=== PATIENT | male | born 1970 | race Two or more races ===

== ENCOUNTER 2016-10-24 14:59 | Inpatient (IN) | payer OTHER ==
[2016-10-24 15:43] VITALS: BMI 26.6
--- NOTE | 2016-10-24 16:48 | HP ---
COWS - Scale Resting Pulse: 2= [place] 101-120 Sweatin=Flushed/Facial Moisture Restless Observation: 1= Difficult to Sit Still Pupil Size: 2= Moderately Dilated Bone or Joint Aches: 2= Severe Diffuse Aches Runny Nose/ Eye Tearin= Runny Nose/Eyes GI Upset > 30mins: 2= Nausea/Diarrhea Tremor Observation: 2= Slight Tremor Visible Yawning Observation: 1= 1-2x During Session Anxiety or Irritability: 2=Irritable/Anxious Goose Flesh Skin: 0=Smooth Skin COWS Score: 18 CIWA Score - CIWA Score Nausea/Vomitin Muscle Tremors: 4-Moderate,w/Arms Extend Anxiety: 4-Mod. Anxious/Guarded Agitation: 4-Moderately Restless Paroxysmal Sweats: 3 Orientation: 0-Oriented Tacttile Disturbances: 2-Mild Itch/Numbness/Burn Auditory Disturbances: 0-None Visual Disturbances: 0-None Headache: 0-None Present CIWA-Ar Total Score: 20 Admission ROS BHS - HPI Chief Complaint: WITHDRAWAL SX. Allergies/Adverse Reactions: Allergies Allergy/AdvReac Type Severity Reaction Status Date / Time No Known Allergies Allergy Unverified 02/12/12 08:55 History of Present Illness: 46 Y/O MAN WITH A LONG HX. OF DRUGS & ALCOHOL DEPENDENCE IS ADMITTED FOR DETOX. PT. HAS BEEN IN PREVIOUS DETOX,REPORTS 2 YRS. SOBER & DRUG FREE. PT. WAS IN THE ED LAST NIGHT. Exam Limitations: No Limitations - Ebola screening Have you traveled outside of the country in the last 21 days: No (N) Have you had contact with anyone from an Ebola affected area: No Have you been sick,other than usual withdrawal symptoms: No Do you have a fever: No - Review of Systems Constitutional: Diaphoresis EENT: reports: Nose Congestion Respiratory: reports: No Symptoms reported Cardiac: reports: No Symptoms Reported GI: reports: Nausea, Abdominal cramping : reports: No Symptoms Reported Musculoskeletal: reports: Back Pain, Joint Pain Integumentary: reports: Sweating Neuro: reports: Tingling, Tremors Endocrine: reports: No Symptoms Reported Hematology: reports: No Symptoms Reported Psychiatric: reports: No Sypmtoms Reported Other Systems: Reviewed and Negative Patient History - Patient Medical History Hx Anemia: No Hx Asthma: No Hx Chronic Obstructive Pulmonary Disease (COPD): No Hx Cancer: No Hx Cardiac Disorders: No Hx Congestive Heart Failure: No Hx Hypertension: No Hx Hypercholesterolemia: No Hx Pacemaker: No HX Cerebrovascular Accident: No Hx Seizures: No Hx Dementia: No Hx Diabetes: No Hx Gastrointestinal Disorders: No Hx Liver Disease: No Hx Genitourinary Disorders: No Hx Sexually Transmitted Disorders: No Hx Renal Disease (ESRD): No Hx Thyroid Disease: No Hx Human Immunodeficiency Virus (HIV): No Hx Hepatitis C: No Hx Depression: Yes Hx Suicide Attempt: No Hx Bipolar Disorder: Yes Hx Schizophrenia: No - Patient Surgical History Past Surgical History: Yes Hx Neurologic Surgery: Yes (CERVICAL LAMINECTOMY,USES WALKER SINCE THEN) Hx Cataract Extraction: No Hx Cardiac Surgery: No Hx Lung Surgery: No Hx Breast Surgery: No Hx Breast Biopsy: No Hx Abdominal Surgery: No Hx Appendectomy: No Hx Cholecystectomy: No Hx Genitourinary Surgery: No Hx Section: No Hx Orthopedic Surgery: No Anesthesia Reaction: No - PPD History Previous Implant?: Yes Documented Results: Negative w/proof Implanted On Prior [facility] Admission?: Yes Date: 02/13/12 Results: 0 mm PPD to be Administered?: Yes - Smoking Cessation Smoking history: Current every day smoker Have you smoked in the past 12 months: Yes Aproximately how many cigarettes per day: 10 Hx Chewing Tobacco Use: No Initiated information on smoking cessation: Yes 'Breaking Loose' booklet given: 10/24/16 - Substance & Tx. History Hx Alcohol Use: Yes Hx Substance Use: Yes Substance Use Type: Alcohol, Cocaine, Heroin Hx Substance Use Treatment: Yes (DETOX) - Substances Abused Alcohol Route: Oral Frequency: Daily Amount used: RUM 3 PINTS Age of first use: 14 Date of Last Use: 10/24/16 Heroin Route: Inhalation Frequency: Daily Amount used: 8 BAGS Age of first use: 28 Date of Last Use: 10/24/16 Crack Route: Smoking Amount used: $200-$400 Age of first use: 20 Date of Last Use: 10/23/16 Alprazolam (Xanax) Route: Oral Frequency: Daily Amount used: 2MG Age of first use: 31 Date of Last Use: 10/18/16 Family Disease History - Family Disease History Family History: Denies Admission Physical Exam BHS - Vital Signs Vital Signs: Vital Signs - 24 hr 10/24/16 15:38 Temperature 96.7 F L Pulse Rate 110 H Respiratory 20 Rate Blood Pressure 120/69 - Physical General Appearance: Yes: Alcohol on Breath, Tremorous, Sweating, Anxious HEENTM: Yes: Nasal Congestion, Rhinorrhea Respiratory: Yes: Chest Non-Tender, Lungs Clear, Normal Breath Sounds Neck: Yes: Supple Breast: Yes: Breast Exam Deferred Cardiology: Yes: Regular Rhythm, Regular Rate, S1, S2 Abdominal: Yes: Normal Bowel Sounds, Non Tender, Soft Genitourinary: Yes: Within Normal Limits Back: Yes: Within Normal Limits Musculoskeletal: Yes: Within Normal Limits Extremities: Yes: Tremors Neurological: Yes: Fully Oriented, Alert Integumentary: Yes: Diaphoresis Lymphatic: Yes: Within Normal Limits - Diagnostic (1) Opioid dependence with withdrawal Current Visit: Yes Status: Acute (2) Alcohol dependence with uncomplicated withdrawal Current Visit: Yes Status: Acute (3) Sedative, hypnotic or anxiolytic dependence with withdrawal, uncomplicated Current Visit: Yes Status: Acute (4) Cocaine dependence, uncomplicated Current Visit: Yes Status: Acute Cleared for Admission [facility] - Detox or Rehab [facility] Level of Care: Medically Managed Detox Regimen/Protocol: Methadone/Librium [facility] Breath Alcohol Content Breath Alcohol Content: 0.021 Urine Drug Screen - Results Drug Screen Negative: No Urine Drug Screen Results: TIFFANY-Cocaine, OPI-Opiates, MDMA-Ecstasy, BZO- Benzodiazepines, TCA-Tricyclic Antidepress, OXY-Oxycodone
[2016-10-24] MEDS ORDERED: chlordiazePOXIDE HCL 25 MG CAPSULE PO ONE (16:59)
[2016-10-24] MEDS ORDERED: P-EPHED 60MG/TRIPROLIDI 2.5MG TABLET PO PRN (16:59)
[2016-10-24] MEDS ORDERED: MAGNESIUM CITRATE 300 ML BOTTLE PO PRN (16:59)
[2016-10-24] MEDS ORDERED: guaiFENesin/D-METHORPHAN HB 10 ML UNIT-DOSE CUPS PO PRN (16:59)
[2016-10-24] MEDS ORDERED: chlordiazePOXIDE HCL 25 MG CAPSULE PO PRN (16:59)
[2016-10-24] MEDS ORDERED: MAGNESIUM HYDROX 2400MG/30ML ORAL SUSPENSION 30 ML CUP PO PRN (16:59)
[2016-10-24] MEDS ORDERED: MENTHOL/PHENOL 1 EACH UD MM PRN (16:59)
[2016-10-24] MEDS ORDERED: NICOTINE POLACRILEX 2 MG GUM BC PRN (16:59)
[2016-10-24] MEDS ORDERED: LOPERAMIDE HCL 2 MG CAPSULE PO PRN (16:59)
[2016-10-24] MEDS ORDERED: METHADONE HCL 10 MG TABLET (FOR DETOX USE ONLY) PO ONE ×2 (16:59→23:00)
[2016-10-24] MEDS ORDERED: MAG HYDROX/AL HYDROX/SIMETH 30 ML UNIT-DOSE CUP PO PRN (16:59)
[2016-10-24] MEDS ORDERED: METHADONE HCL 10 MG TABLET (FOR DETOX USE ONLY) ONE (18:28)
[2016-10-24] MEDS: chlordiazePOXIDE HCL 25 MG CAPSULE PO SCH ×2 (18:39→22:28)
[2016-10-24] MEDS: NICOTINE 21 MG/24 HOURS TOPICAL PATCH TD SCH (18:39)
[2016-10-24] MEDS: IBUPROFEN 400 MG TABLET (FP) PO PRN (18:45)
[2016-10-24] MEDS: THIAMINE HCL 100 MG TABLET (FP) PO SCH (22:28)
[2016-10-24] MEDS: diphenhydrAMINE HCL 50 MG CAPSULE PO PRN (22:28)
[2016-10-25] MEDS: diphenhydrAMINE HCL 50 MG CAPSULE PO PRN ×2 (00:50→22:33)
[2016-10-25] MEDS: IBUPROFEN 400 MG TABLET (FP) PO PRN ×2 (04:25→17:51)
[2016-10-25] MEDS: chlordiazePOXIDE HCL 25 MG CAPSULE PO SCH ×4 (05:18→22:33)
[2016-10-25 09:45] LABS: MCH 31.1 pg (25.7-33.7); MCHC 33.4 g/dl (32.0-35.9); MEAN CELL VOLUME 93.2 fl (80-96); MEAN PLT VOLUME 10.5 fl (7.5-11.1); PLATELET COUNT 211 K/MM3 (134-434); RDW 14.8 % (11.9-15.9)
[2016-10-25] MEDS ORDERED: METHADONE HCL 10 MG TABLET (FOR DETOX USE ONLY) PO SCH (10:00)
[2016-10-25 10:20] LABS: ALBUMIN 3.5 g/dl (3.4-5.0); ALK PHOS 85 U/L (45-117); ANION GAP 7 (8-16); BILIRUBIN,TOTAL 0.5 mg/dL (0.2-1.0); CALCIUM 8.5 mg/dL (8.5-10.1); CO2 28 mmol/L (21-32); CREATININE 0.9 mg/dL (0.7-1.3); GLUCOSE,RANDOM 79 mg/dL (74-106); SGOT/AST 27 U/L (15-37); SGPT/ALT 26 U/L (12-78); TOT PROT 6.1 g/dl (6.4-8.2)
[2016-10-25] MEDS: PRENATAL VITAMINS W/ FOLIC ACID TABLET (FP) PO SCH (10:23)
[2016-10-25] MEDS: NICOTINE 21 MG/24 HOURS TOPICAL PATCH TD SCH (10:25)
--- NOTE | 2016-10-25 14:46 | PN ---
[facility] CIWA - CIWA Score Nausea/Vomitin-Mild Nausea/No Vomiting Muscle Tremors: 3 Anxiety: 1-Mildly Anxious Agitation: 2 Paroxysmal Sweats: 3 Orientation: 0-Oriented Tacttile Disturbances: 2-Mild Itch/Numbness/Burn Auditory Disturbances: 1-Very Mild Visual Disturbances: 0-None Headache: 0-None Present CIWA-Ar Total Score: 13 S COWS - Scale Resting Pulse: 0= DC 80 or Below Sweatin= Chills/Flushing Restless Observation: 1= Difficult to Sit Still Pupil Size: 0= Normal to Room Light Bone or Joint Aches: 2= Severe Diffuse Aches Runny Nose/ Eye Tearin= None GI Upset > 30mins: 0= None Tremor Observation of Outstretched Hands: 2= Slight Tremor Visible Yawning Observation: 1= 1-2x During Session Anxiety or Irritability: 2=Irritable/Anxious Goose Flesh Skin: 3=Piloerection COWS Score: 12 S Progress Note (SOAP) Subjective: Tremors, Interrupted sleep, Body aches. Objective: FEVER NOT PRESENT. NO SIGNS OF INFECTION NOTED. 10/25/16 14:43 Vital Signs Temperature 97.0 F L 10/25/16 13:55 Pulse Rate 68 10/25/16 13:55 Respiratory Rate 18 10/25/16 13:55 Blood Pressure 129/72 10/25/16 13:55 O2 Sat by Pulse Oximetry (%) Laboratory Last Values WBC 12.0 K/mm3 (4.0-10.0) H D 10/25/16 07:30 RBC 4.10 M/mm3 (4.00-5.60) 10/25/16 07:30 Hgb 12.8 GM/dL (11.7-16.9) 10/25/16 07:30 Hct 38.2 % (35.4-49) 10/25/16 07:30 MCV 93.2 fl (80-96) 10/25/16 07:30 MCHC 33.4 g/dl (32.0-35.9) 10/25/16 07:30 RDW 14.8 % (11.9-15.9) 10/25/16 07:30 Plt Count 211 K/MM3 (134-434) 10/25/16 07:30 MPV 10.5 fl (7.5-11.1) 10/25/16 07:30 Sodium 141 mmol/L (136-145) 10/25/16 07:20 Potassium 3.9 mmol/L (3.5-5.1) 10/25/16 07:20 Chloride 106 mmol/L (98-107) 10/25/16 07:20 Carbon Dioxide 28 mmol/L (21-32) 10/25/16 07:20 Anion Gap 7 (8-16) L 10/25/16 07:20 BUN 16 mg/dL (7-18) D 10/25/16 07:20 Creatinine 0.9 mg/dL (0.7-1.3) 10/25/16 07:20 Creat Clearance w eGFR > 60 (>60) 10/25/16 07:20 Random Glucose 79 mg/dL (74-106) 10/25/16 07:20 Calcium 8.5 mg/dL (8.5-10.1) 10/25/16 07:20 Total Bilirubin 0.5 mg/dL (0.2-1.0) D 10/25/16 07:20 AST 27 U/L (15-37) D 10/25/16 07:20 ALT 26 U/L (12-78) 10/25/16 07:20 Alkaline Phosphatase 85 U/L (45-117) D 10/25/16 07:20 Total Protein 6.1 g/dl (6.4-8.2) L 10/25/16 07:20 Albumin 3.5 g/dl (3.4-5.0) 10/25/16 07:20 LABS NOTED. 10/25/16 14:44 Assessment: 10/25/16 14:44 WITHDRAWAL SYMPTOMS. Plan: CONTINUE DETOX. ADVISED PT. TO FOLLOW-UP WITH PMD / REHAB MEDICAL PROVIDER AFTER DISCHARGE FOR GENERAL MEDICAL ASSESSMENT AND FOR ABNORMAL LAB VALUES.
[2016-10-25] MEDS: THIAMINE HCL 100 MG TABLET (FP) PO SCH (22:33)
[2016-10-25 23:02] LABS: URINE APPEARANCE CLEAR; URINE BILIRUBIN NEGATIVE (NEGATIVE); URINE BLOOD NEGATIVE (NEGATIVE); URINE COLOR LTYELLOW; URINE GLUCOSE (UA) NEGATIVE (NEGATIVE); URINE KETONE NEGATIVE (NEGATIVE); URINE LEUK ESTERASE NEGATIVE (NEGATIVE); URINE NITRITE NEGATIVE (NEGATIVE); URINE PROTEIN NEGATIVE (NEGATIVE); URINE UROBILINOGEN NEGATIVE E.U./dl (0.2-1.0)
[2016-10-26] MEDS: diphenhydrAMINE HCL 50 MG CAPSULE PO PRN ×2 (01:35→22:23)
[2016-10-26] MEDS: IBUPROFEN 400 MG TABLET (FP) PO PRN (01:36)
[2016-10-26] MEDS: ACETAMINOPHEN 325 MG TABLET (FP) PO PRN ×2 (05:49→10:43)
[2016-10-26] MEDS: chlordiazePOXIDE HCL 25 MG CAPSULE PO SCH ×2 (05:50→10:40)
[2016-10-26] MEDS: PRENATAL VITAMINS W/ FOLIC ACID TABLET (FP) PO SCH (10:40)
[2016-10-26] MEDS: METHADONE HCL 5 MG TABLET (FOR DETOX USE ONLY) PO SCH (10:40)
[2016-10-26] MEDS: NICOTINE 21 MG/24 HOURS TOPICAL PATCH TD SCH (10:41)
--- NOTE | 2016-10-26 14:24 | PN ---
[facility] CIWA - CIWA Score Nausea/Vomitin-No Nausea/No Vomiting Muscle Tremors: 3 Anxiety: 4-Mod. Anxious/Guarded Agitation: 3 Paroxysmal Sweats: 3 Orientation: 0-Oriented Tacttile Disturbances: 0-None Auditory Disturbances: 0-None Visual Disturbances: 0-None Headache: 0-None Present CIWA-Ar Total Score: 13 BHS COWS - Scale Resting Pulse: 1= [place] 81-100 Sweatin=Flushed/Facial Moisture Restless Observation: 1= Difficult to Sit Still Pupil Size: 0= Normal to Room Light Bone or Joint Aches: 1= Mild Discomfort Runny Nose/ Eye Tearin= Runny Nose/Eyes GI Upset > 30mins: 2= Nausea/Diarrhea Tremor Observation of Outstretched Hands: 2= Slight Tremor Visible Yawning Observation: 1= 1-2x During Session Anxiety or Irritability: 2=Irritable/Anxious Goose Flesh Skin: 0=Smooth Skin COWS Score: 14 S Progress Note (SOAP) Subjective: SWEATING,ANXIETY,TREMORS,INTERRUPTED SLEEP,RESTLESS. Objective: 10/26/16 14:22 Vital Signs - 8 hr 10/26/16 10:42 Temperature 96.2 F L Pulse Rate 84 Respiratory 20 Rate Blood Pressure 116/79 Laboratory Tests 10/25/16 10/25/16 10/25/16 07:20 07:20 07:30 WBC 12.0 H D RBC 4.10 Hgb 12.8 Hct 38.2 MCV 93.2 MCHC 33.4 RDW 14.8 Plt Count 211 MPV 10.5 Sodium 141 Potassium 3.9 Chloride 106 Carbon Dioxide 28 Anion Gap 7 L BUN 16 D Creatinine 0.9 Creat Clearance w eGFR > 60 Random Glucose 79 Calcium 8.5 Total Bilirubin 0.5 D AST 27 D ALT 26 Alkaline Phosphatase 85 D Total Protein 6.1 L Albumin 3.5 Urine Color Urine Appearance Urine pH Ur Specific [place] Urine Protein Urine Glucose (UA) Urine Ketones Urine Blood Urine Nitrite Urine Bilirubin Urine Urobilinogen Ur Leukocyte Esterase RPR Titer Nonreactive 10/25/16 22:45 WBC RBC Hgb Hct MCV MCHC RDW Plt Count MPV Sodium Potassium Chloride Carbon Dioxide Anion Gap BUN Creatinine Creat Clearance w eGFR Random Glucose Calcium Total Bilirubin AST ALT Alkaline Phosphatase Total Protein Albumin Urine Color Ltyellow Urine Appearance Clear Urine pH 5.0 Ur Specific [place] 1.013 Urine Protein Negative Urine Glucose (UA) Negative Urine Ketones Negative Urine Blood Negative Urine Nitrite Negative Urine Bilirubin Negative Urine Urobilinogen Negative Ur Leukocyte Esterase Negative RPR Titer LABS NOTED Assessment: 10/26/16 14:23 WITHDRAWAL SX. Plan: CONTINUE DETOX
--- NOTE | 2016-10-26 16:40 | CONSULT ---
[facility] Psychiatric Consult - Data Date of interview: 10/26/16 Admission source: [facility] Identifying data: Readmission to [facility] for this 46 y/o male seeking detox treatment on for alcohol,cocaine,heroin and benzodiazepine (xanax) dependence.Patient is ,a father of three, homeless,disabled and supported on SSI benefits. Substance Abuse History: - Smoking Cessation. Smoking history: Current every day smoker. Have you smoked in the past 12 months: Yes. Aproximately how many cigarettes per day: 10. Hx Chewing Tobacco Use: No. Initiated information on smoking cessation: Yes. 'Breaking Loose' booklet given: 10/24/16. - Substance & Tx. History. Hx Alcohol Use: Yes. Hx Substance Use: Yes. Substance Use Type : Alcohol, Cocaine, Heroin. Hx Substance Use Treatment: Yes (DETOX). - Substances Abused. Alcohol. Route: Oral. Frequency: Daily. Amount used: RUM 3 PINTS. Age of first use: 14. Date of Last Use: 10/24/16. Heroin. Route: Inhalation. Frequency: Daily. Amount used: 8 BAGS. Age of first use: 28. Date of Last Use: 10/24/16. Crack. Route: Smoking. Amount used: $200- $400. Age of first use: 20. Date of Last Use: 10/23/16. Alprazolam (Xanax) . Route: Oral. Frequency: Daily. Amount used: 2MG. Age of first use: 31. Date of Last Use: 10/18/16. Confirmed by patient. Medical History: Significant for a history of cervical laminectomy.Ambulates with a walker. Psychiatric History: Patient admits to a history of multiple hospitalizations.Known to [facility].Diagnosed with Bipolar Disorder.Mr Morales reports being on seroquel 200 mg/hs (was treated with that medications during his stay at the [facility] inpatient program from May 2016-August 2016).No contact with [employer] care providers since discharged from that facility.No reported history of suicide attempts. Physical/Sexual Abuse/Trauma History: Patient denies. Additional Comment: Urine Drug Screen Results: TIFFANY-Cocaine, OPI-Opiates, MDMA- Ecstasy, BZO-Benzodiazepines, TCA-Tricyclic Antidepress, OXY-Oxycodone.Noted. Mental Status Exam - Mental Status Exam Alert and Oriented to: Time, Place, Person Cognitive Function: Good Patient Appearance: Unkempt, Disheveled Mood: Withdrawn, Anxious, Apprehensive Affect: Mood Congruent Patient Behavior: Fatigued, Appropriate, Cooperative Speech Pattern: Clear, Appropriate Voice Loudness: Normal Thought Process: Goal Oriented Thought Disorder: Not Present Hallucinations: Denies Suicidal Ideation: Denies Homicidal Ideation: Denies Sleep: Poorly, Difficulty falling asleep Appetite: Good Muscle strength/Tone: Normal Gait/Station: Other (walks with a walker) Psychiatric Findings - Problem List ([place] 1, 2,3) (1) Alcohol dependence with uncomplicated withdrawal Current Visit: Yes Status: Acute (2) Sedative, hypnotic or anxiolytic dependence with withdrawal, uncomplicated Current Visit: Yes Status: Acute (3) Cocaine dependence, uncomplicated Current Visit: Yes Status: Acute (4) Opioid dependence with withdrawal Current Visit: Yes Status: Acute (5) Substance induced mood disorder Current Visit: Yes Status: Acute (6) Bipolar disorder Current Visit: Yes Status: Chronic Comment: By history (self-report). (7) Insomnia Current Visit: Yes Status: Acute - Initial Treatment Plan Initial Treatment Plan: Psychoeducation.Detoxification.Seroquel 200 mg po hs.Side effects/benefits discussed with patient.Observation.Fall precautions.
[2016-10-26] MEDS: chlordiazePOXIDE 5 MG CAPSULE PO SCH ×2 (18:24→22:22)
[2016-10-26] MEDS: hydrOXYzine PAMOATE 50 MG CAPSULE (FP) PO PRN (20:30)
[2016-10-26] MEDS: QUEtiapine FUMARATE 200 MG TABLET PO SCH (22:22)
[2016-10-26] MEDS: THIAMINE HCL 100 MG TABLET (FP) PO SCH (22:22)
[2016-10-27] MEDS: chlordiazePOXIDE 5 MG CAPSULE PO SCH ×2 (05:52→10:08)
[2016-10-27] MEDS: METHADONE HCL 5 MG TABLET (FOR DETOX USE ONLY) PO SCH (10:08)
[2016-10-27] MEDS: PRENATAL VITAMINS W/ FOLIC ACID TABLET (FP) PO SCH (10:08)
[2016-10-27] MEDS: NICOTINE 21 MG/24 HOURS TOPICAL PATCH TD SCH (10:08)
--- NOTE | 2016-10-27 10:37 | PN ---
BHS Progress Note (SOAP) Subjective: SWEATING,INTERRUPTED SLEEP,RESTLESS Objective: 10/27/16 10:35 Vital Signs - 8 hr 10/27/16 10/27/16 03:30 06:44 Temperature 97.2 F L Pulse Rate 101 H Respiratory 20 16 Rate Blood Pressure 114/80 Laboratory Tests 10/25/16 10/25/16 10/25/16 07:20 07:20 07:30 WBC 12.0 H D RBC 4.10 Hgb 12.8 Hct 38.2 MCV 93.2 MCHC 33.4 RDW 14.8 Plt Count 211 MPV 10.5 Sodium 141 Potassium 3.9 Chloride 106 Carbon Dioxide 28 Anion Gap 7 L BUN 16 D Creatinine 0.9 Creat Clearance w eGFR > 60 Random Glucose 79 Calcium 8.5 Total Bilirubin 0.5 D AST 27 D ALT 26 Alkaline Phosphatase 85 D Total Protein 6.1 L Albumin 3.5 Urine Color Urine Appearance Urine pH Ur Specific [place] Urine Protein Urine Glucose (UA) Urine Ketones Urine Blood Urine Nitrite Urine Bilirubin Urine Urobilinogen Ur Leukocyte Esterase RPR Titer Nonreactive 10/25/16 22:45 WBC RBC Hgb Hct MCV MCHC RDW Plt Count MPV Sodium Potassium Chloride Carbon Dioxide Anion Gap BUN Creatinine Creat Clearance w eGFR Random Glucose Calcium Total Bilirubin AST ALT Alkaline Phosphatase Total Protein Albumin Urine Color Ltyellow Urine Appearance Clear Urine pH 5.0 Ur Specific [place] 1.013 Urine Protein Negative Urine Glucose (UA) Negative Urine Ketones Negative Urine Blood Negative Urine Nitrite Negative Urine Bilirubin Negative Urine Urobilinogen Negative Ur Leukocyte Esterase Negative RPR Titer LABS NOTED Assessment: 10/27/16 10:36 WITHDRAWAL SX. Plan: CONTINUE DETOX
[2016-10-27] MEDS: hydrOXYzine PAMOATE 50 MG CAPSULE (FP) PO PRN ×2 (12:57→20:40)
[2016-10-27] MEDS: IBUPROFEN 400 MG TABLET (FP) PO PRN ×2 (12:57→20:42)
[2016-10-27] MEDS: chlordiazePOXIDE HCL 10 MG CAPSULE PO SCH ×2 (17:46→22:06)
[2016-10-27] MEDS: QUEtiapine FUMARATE 200 MG TABLET PO SCH (22:06)
[2016-10-27] MEDS: THIAMINE HCL 100 MG TABLET (FP) PO SCH (22:06)
[2016-10-27] MEDS: ACETAMINOPHEN 325 MG TABLET (FP) PO PRN (22:08)
[2016-10-28] MEDS: chlordiazePOXIDE HCL 10 MG CAPSULE PO SCH (06:19)
[2016-10-28] MEDS: IBUPROFEN 400 MG TABLET (FP) PO PRN (06:21)
--- NOTE | 2016-10-28 08:47 | PN ---
S Progress Note (SOAP) Subjective: ALERT,NO COMPLAINT Objective: 10/28/16 08:45 Vital Signs Temperature 97.2 F L 10/27/16 21:51 Pulse Rate 102 H 10/27/16 21:51 Respiratory Rate 18 10/28/16 01:00 Blood Pressure 128/91 10/27/16 21:51 O2 Sat by Pulse Oximetry (%) Assessment: 10/28/16 08:45 PATIENT IS STABLE FOR DISCHARGE TODAY, NO WITHDRAWAL SYMPTOM 10/28/16 08:45 Plan: DISCHARGE TODAY,FOLLOW UP WITH AFTER CARE PROGRAM ARRANGEMENT
--- NOTE | 2016-10-28 08:52 | DS ---
[facility] Detox Discharge Summary Admission Date: 10/24/16 Discharge Date: 10/28/16 - History Present History: Alcohol Dependence, Cocaine Dependence, Opioid Dependence, Sedative Dependence Additional Comments: STABLE FOR DISCHARGE TODAY,FOLLOW UP WITH AFTER CARE PROGRAM ARRANGEMENT AND PMD FOR MEDICAL PROBLEM AND OWN PSYCHIATRIST Pertinent Past History: S/P SPINAL SURGERY AMBULATE WITH WALKER BIPOLAR DISORDER - Physical Exam Results Vital Signs: Vital Signs Temperature 97.2 F L 10/27/16 21:51 Pulse Rate 102 H 10/27/16 21:51 Respiratory Rate 18 10/28/16 01:00 Blood Pressure 128/91 10/27/16 21:51 O2 Sat by Pulse Oximetry (%) Pertinent Admission Physical Exam Findings: WITHDRAWAL SYMPTOM - Treatment Hospital Course: Detox Protocol Followed, Detoxed Safely, Responded well, Discharged Condition Good Patient has Accepted a Rehab Referral to: DECLINED - Medication Discharge Medications: Ambulatory Orders Paroxetine HCl [Paxil -] 40 mg PO DAILY #0 tablet 02/16/12 Quetiapine Fumarate [Seroquel -] 200 mg PO HS #0 tablet 02/16/12 Quetiapine Fumarate [Seroquel -] 200 mg PO HS #30 tab 10/26/16 - AMA Did Patient Leave Against Medical Advice: No
[2016-10-28 09:46] VITALS: BP 126/88; PULSE 103; TEMP 97.1
[2016-10-28] MEDS ORDERED: METHADONE HCL 10 MG TABLET (FOR DETOX USE ONLY) PO SCH (10:00)
[2016-10-29] MEDS ORDERED: METHADONE HCL 5 MG TABLET (FOR DETOX USE ONLY) PO SCH (06:00)
== END 2016-10-28 08:57 | disposition home or self-care (01) | DRG 773 ==
LOC: YASAS 14:59 → Y3N 17:21
PROVIDERS: ADMIT Internal Medicine; ATTEND Internal Medicine
PROC: HZ2ZZZZ Detoxification Services for Substance Abuse Treatment (ICD-10-PCS; principal; 2016-10-24)
DX: F11.23 Opioid dependence with withdrawal (principal); F13.230 Sedative, hypnotic or anxiolytic dependence with withdrawal, uncomplicated; F10.230 Alcohol dependence with withdrawal, uncomplicated; F14.20 Cocaine dependence, uncomplicated; F17.210 Nicotine dependence, cigarettes, uncomplicated; F31.9 Bipolar disorder, unspecified; F19.24 Other psychoactive substance dependence with psychoactive substance-induced mood disorder; G47.00 Insomnia, unspecified; R26.2 Difficulty in walking, not elsewhere classified; Z99.89 Dependence on other enabling machines and devices
CPT/HCPCS: 36415; 80053; 81003; 85027; 86593; 93005; 93010